=== PATIENT | female | born 1935 | race Caucasian/White ===

== ENCOUNTER 2019-09-15 18:44 | Inpatient (IN) | payer OTHER ==
[2019-09-15] MEDS ORDERED: NA CHLORIDE 0.9% 1,000 ML ONE (19:46)
[2019-09-15] MEDS ORDERED: FENTANYL CITR 100 MCG/2 ML ONE (19:46)
[2019-09-15 19:55] LABS: Basophils % 0.4 % (0-1.3); Hematocrit 34.3 % (36.0-45.0); Lymphocytes % 10.8 % (15.3-44.8); MPV 8.2 fL (7.6-11.3); RBC Red Blood Cell Count 3.66 M/uL (3.86-4.86)
[2019-09-15 19:56] LABS: Protime INR 1.1
[2019-09-15 20:13] LABS: ALT/SGPT 18 U/L (12-78); AST/SGOT 17 U/L (15-37); Albumin 3.1 g/dL (3.4-5.0); Alkaline Phosphatase 64 U/L (45-117); BUN Blood Urea Nitrogen 18 mg/dL (7-18); Bicarbonate 27 mmol/L (21-32); Bilirubin Direct 0.2 mg/dL (0-0.2); Bilirubin Total 0.8 mg/dL (0.2-1.0); Glucose Level 133 mg/dL (74-106); Lipase 72 U/L (73-393); Magnesium 1.8 mg/dL (1.8-2.4); NT PRO-BNP 1460 pg/mL (<450); Potassium 3.4 mmol/L (3.5-5.1); Protein, Total 6.5 g/dL (6.4-8.2); Sodium Level 139 mmol/L (136-145); Troponin (Emerg Dept Use Only) < 0.02 ng/mL (0.0-0.045)
--- NOTE | 2019-09-15 20:55 | RAD REPORT ---
EXAM DESCRIPTION: RAD - Chest Single View - 09/15/2019 8:10 pm CLINICAL HISTORY: Cough, shortness of breath COMPARISON: April 2013 TECHNIQUE: AP portable chest image was obtained 1939 hours . FINDINGS: No peripheral mass or consolidation. Interstitial markings are mildly prominent, increased from comparison. Trachea is midline. Heart and vasculature are normal. No measurable pleural effusio n and no pneumothorax. No acute bony abnormality seen. No acute aortic findings suspected. IMPRESSION: No focal lung parenchymal process P Interstitial pattern is increased over 2013 imaging. This could be progressive fibrosis, edema, infil trate or a combination.
[2019-09-15 21:53] LABS: Urine Blood NEGATIVE (NEG); Urine Glucose NEGATIVE (NEG); Urine Protein NEGATIVE (NEG)
--- NOTE | 2019-09-15 22:27 | EDPHYS ---
Physician Documentation [facility] Name: Anabelle Walters Age: 84 yrs Sex: Female : 1935 Arrival Date: 09/15/2019 Time: 18:54 Bed 3 Private MD: ED Physician Edis Arias HPI: 09/15 21:03 This 84 yrs old Female presents to ER via EMS with complaints of Near jr8 Syncope, Blood Pressure Problem. 21:03 Onset: The symptoms/episode began/occurred acutely, today. Duration: This was a single jr8 episode, that lasted 20 minute(s). Context: the episode(s) was witnessed, by family, occurred at home, occurred while the patient was at rest. Associated injury: The patient did not suffer any apparent associated injury. Associated signs and symptoms: Pertinent positives: diaphoresis, AMS. Current symptoms: Currently, the patient is not experiencing any symptoms, the patient feels back to baseline, no decreased level of consciousness, no confusion, no dysphasia, no headache, no paralysis, no visual changes. The patient has not experienced similar symptoms in the past. The patient has been recently seen by a physician:. Patient underwent laminectomy this past . Stated that she has been doing well since then. This evening had sudden episode of diaphoresis and altered mentation while sitting at dinner table. Was found to have low BP. EMS arrived and started patient on fluids. Now doing much better . Historical: - Allergies: 18:57 No Known Allergies; hb - Immunization history:: Adult Immunizations up to date. - Social history:: Smoking status: Patient/guardian denies using tobacco. - Ebola Screening: : No symptoms or risks identified at this time. ROS: 21:08 Eyes: Negative for injury, pain, redness, and discharge, ENT: Negative for injury, jr8 pain, and discharge, Neck: Negative for injury, pain, and swelling, Cardiovascular: Negative for chest pain, palpitations, and edema, Respiratory: Negative for shortness of breath, cough, wheezing, and pleuritic chest pain, Abdomen/GI: Negative for abdominal pain, nausea, vomiting, diarrhea, and constipation, Back: Negative for injury and pain, MS/Extremity: Negative for injury and deformity, Skin: Negative for injury, rash, and discoloration. 21:08 Neuro: Positive for altered mental status, near syncope. Exam: 21:08 Eyes: Pupils equal round and reactive to light, extra-ocular motions intact. Lids and jr8 lashes normal. Conjunctiva and sclera are non-icteric and not injected. Cornea within normal limits. Periorbital areas with no swelling, redness, or edema. ENT: Nares patent. No nasal discharge, no septal abnormalities noted. Tympanic membranes are normal and external auditory canals are clear. Oropharynx with no redness, swelling, or masses, exudates, or evidence of obstruction, uvula midline. Mucous membranes moist. Neck: Trachea midline, no thyromegaly or masses palpated, and no cervical lymphadenopathy. Supple, full range of motion without nuchal rigidity, or vertebral point tenderness. No Meningismus. Cardiovascular: Regular rate and rhythm with a normal S1 and S2. No gallops, murmurs, or rubs. Normal PMI, no JVD. No pulse deficits. Respiratory: Lungs have equal breath sounds bilaterally, clear to auscultation and percussion. No rales, rhonchi or wheezes noted. No increased work of breathing, no retractions or nasal flaring. Abdomen/GI: Soft, non-tender, with normal bowel sounds. No distension or tympany. No guarding or rebound. No evidence of tenderness throughout. Back: No spinal tenderness. No costovertebral tenderness. Full range of motion. MS/ Extremity: Pulses equal, no cyanosis. Neurovascular intact. Full, normal range of motion. Neuro: Awake and alert, GCS 15, oriented to person, place, time, and situation. Cranial nerves II-XII grossly intact. Motor strength 5/5 in all extremities. Sensory grossly intact. Cerebellar exam normal. Normal gait. 21:08 Skin: Patient has approximately 4 inch incision to midline lower back with multiple atul in place. No active bleeding noted. No erythema noted. Mild amount of bruising present. Vital Signs: 18:57 BP 154 / 84; Pulse 80; Resp 16; Temp 97.8; Pulse Ox 100% on R/A; Pain 2/10; hb 19:55 BP 124 / 60; Pulse 70; Resp 17 S; Pulse Ox 99% on 2 lpm NC; jd3 21:22 BP 133 / 59; Pulse 77; Resp 16 S; Pulse Ox 95% on R/A; jd3 21:56 BP 123 / 59; Pulse 72; Resp 18 S; Pulse Ox 95% on R/A; jd3 22:54 BP 121 / 54; Pulse 67; Resp 17 S; Pulse Ox 96% on R/A; jd3 MDM: 19:11 Patient medically screened. jr8 22:25 Data reviewed: vital signs, nurses notes, lab test result(s), EKG, radiologic studies, jr8 CT scan, plain films. Data interpreted: Pulse oximetry: on room air is 95 %. Interpretation: normal. Counseling: I had a detailed discussion with the patient and/or guardian regarding: the historical points, exam findings, and any diagnostic results supporting the discharge/admit diagnosis, lab results, radiology results, the need for further work-up and treatment in the hospital. Physician consultation: Vijaya Dumont MD was called at 22:26, was contacted at 22:26, regarding admission, to the telemetry unit. consult, patient's condition, and will see patient. 09/15 19:13 Order name: Basic Metabolic Panel [facility] 09/15 19:13 Order name: CBC with Diff [facility] 09/15 19:13 Order name: LFT's [facility] 09/15 19:13 Order name: Magnesium [facility] 09/15 19:13 Order name: NT PRO-BNP [facility] 09/15 19:13 Order name: PT-INR [facility] 09/15 19:13 Order name: Troponin (emerg Dept Use Only) [facility] 09/15 19:13 Order name: Procalcitonin [facility] 09/15 19:13 Order name: Lactate [facility] 09/15 19:13 Order name: Urine Culture [facility] 09/15 19:13 Order name: Lipase [facility] 09/15 19:13 Order name: Blood Culture Adult (2) [facility] 09/15 19:56 Order name: CBC with Automated Diff; Complete Time: 20:05 [facility]DC 09/15 19:58 Order name: Protime (+INR); Complete Time: 20:05 [facility] 09/15 19:13 Order name: XRAY Chest (1 view) [facility] 09/15 20:13 Order name: Lactate; Complete Time: 20:20 EDMS 09/15 20:13 Order name: Basic Metabolic Panel; Complete Time: 20:20 [facility] 09/15 20:13 Order name: Liver (Hepatic) Function; Complete Time: 20:20 [facility] 09/15 20:13 Order name: Troponin (Emerg Dept Use Only); Complete Time: 20:20 [facility] 09/15 20:13 Order name: NT PRO-BNP; Complete Time: 20:20 [facility] 09/15 20:13 Order name: Magnesium; Complete Time: 20:20 [facility] 09/15 20:13 Order name: Lipase; Complete Time: 20:20 [facility] 09/15 20:21 Order name: CT Chest For PE Angio 8 09/15 20:52 Order name: Procalcitonin; Complete Time: 21:29 [facility] 09/15 21:22 Order name: Urine Dipstick--Ancillary (enter results) ar5 09/15 21:54 Order name: Urine Dipstick-Ancillary; Complete Time: 21:57 [facility] 09/15 22:38 Order name: Basic Metabolic Panel [facility] 09/15 22:38 Order name: Basic Metabolic Panel [facility] 09/15 22:38 Order name: CBC with Automated Diff [facility] 09/15 22:38 Order name: CBC with Automated Diff [facility] 09/15 19:13 Order name: EKG; Complete Time: 19:14 [facility] 09/15 19:13 Order name: Cardiac monitoring; Complete Time: 19:50 [facility] 09/15 19:13 Order name: EKG - Nurse/Tech; Complete Time: 19:50 [facility] 09/15 19:13 Order name: IV Saline Lock; Complete Time: 19:55 [facility] 09/15 19:13 Order name: Labs collected and sent; Complete Time: 19:55 [facility] 09/15 19:13 Order name: O2 Per Protocol; Complete Time: 19:17 [facility] 09/15 19:13 Order name: O2 Sat Monitoring; Complete Time: 19:16 [facility] 09/15 19:13 Order name: Urine Dipstick-Ancillary (obtain specimen); Complete Time: 21:22 [facility] 09/15 20:21 Order name: CT Lumbar Spine Wo Con 8 09/15 21:33 Order name: RAD; Complete Time: 21:57 [facility] 09/15 22:38 Order name: CONS Pharmacy Consult [facility] 09/15 22:38 Order name: [facility] EDDC Administered Medications: 19:54 Drug: NS 0.9% 1000 ml Route: IV; Rate: 1 bolus; Site: left antecubital; jd3 22:03 Follow up: Response: No adverse reaction; IV Status: Completed infusion; IV Intake: jd3 1000ml 19:54 Drug: fentaNYL (PF) 50 mcg Route: IVP; Site: left antecubital; jd3 20:50 Follow up: Response: No adverse reaction; RASS: Alert and Calm (0) jd3 22:50 Drug: Potassium Chloride 20 mEq Route: PO; jd3 23:19 Follow up: Response: No adverse reaction jd3 Disposition: 09/16 06:16 Co-signature as Attending Physician, Edis Arias MD I agree with the assessment and kdr plan of care. Disposition: 09/15/19 22:26 Hospitalization ordered by Vijaya Dumont for Observation. Preliminary diagnosis is Hypotension. - Bed requested for Telemetry/MedSurg (observation). - Status is Observation. jd3 - Condition is Stable. - Problem is new. - Symptoms are resolved. UTI on Admission? No Signatures: Dispatcher [employer] EDMS Charito Hurtado RN Raffi Jara MD MD cha Rittger, Kevin, MD MD kdr Roszak, Josh, PA PA jr8 Mary Pelletier RN RN David Savage RN RN jd3 Corrections: (The following items were deleted from the chart) 09/15 22:42 22:26 Hospitalization Ordered by Vijaya Dumont MD for Observation. Preliminary mw diagnosis is Hypotension. Bed requested for Telemetry/MedSurg (observation). Status is Observation. Condition is Stable. Problem is new. Symptoms are resolved. UTI on Admission? No. jr8 23:20 22:42 09/15/2019 22:26 Hospitalization Ordered by Vijaya Dumont MD for Observation. jd3 Preliminary diagnosis is Hypotension. Bed requested for Telemetry/MedSurg (observation). Status is Observation. Condition is Stable. Problem is new. Symptoms are resolved. UTI on Admission? No. mw
--- NOTE | 2019-09-15 22:27 | ER ---
Nurse's Notes [facility] Name: Anabelle Walters Age: 84 yrs Sex: Female : 1935 Arrival Date: 09/15/2019 Time: 18:54 Bed 3 Private MD: Diagnosis: Hypotension Presentation: 09/15 18:55 Presenting complaint: EMS states: Near syncopal episode while sitting in chair at kitchen table. Upon arrival pt was pale, cool, and diaphoretic, unable to palpate BP. During transit to ED BP 101/64, HR 70s, 20g to RIGHT AC. Pt is 2 days s/p laminectomy. Transition of care: patient was not received from another setting of care. Onset of symptoms was September 15, 2019. Risk Assessment: Do you want to hurt yourself or someone else? Patient reports no desire to harm self or others. Initial Sepsis Screen: Does the patient meet any 2 criteria? No. Patient's initial sepsis screen is negative. Does the patient have a suspected source of infection? No. Patient's initial sepsis screen is negative. Care prior to arrival:. 18:55 Method Of Arrival: EMS: [facility] 18:55 Acuity: PAMELA 2 hb Triage Assessment: 18:58 General: Appears in no apparent distress. Behavior is calm, cooperative. Pain: Pain hb currently is 2 out of 10 on a pain scale. EENT: No signs and/or symptoms were reported regarding the EENT system. Neuro: Level of Consciousness is awake, alert, obeys commands, Oriented to person, place, time, situation. Cardiovascular: Capillary refill < 3 seconds Patient's skin is warm and dry. Respiratory: Airway is patent Respiratory effort is even, unlabored, Respiratory pattern is regular, symmetrical, Breath sounds are clear bilaterally. GI: No signs and/or symptoms were reported involving the gastrointestinal system. : No signs and/or symptoms were reported regarding the genitourinary system. Derm: Skin is pink, warm \T\ dry. Musculoskeletal: No signs and/or symptoms reported regarding the musculoskeletal system. Historical: - Allergies: 18:57 No Known Allergies; hb - Immunization history:: Adult Immunizations up to date. - Social history:: Smoking status: Patient/guardian denies using tobacco. - Ebola Screening: : No symptoms or risks identified at this time. Screenin:57 Abuse screen: Denies threats or abuse. Denies injuries from another. Nutritional hb screening: No deficits noted. Tuberculosis screening: No symptoms or risk factors identified. Fall Risk IV access (20 points). Ambulatory Aid- Crutches/Cane/Walker (15 pts). Gait- Weak (10 pts.). Mental Status- Oriented to own ability (0 pts). Total Romano Fall Scale indicates High Risk Score (45 or more points). Fall prevention measures have been instituted. Side Rails Up X 2 Frequent Obs/Assessments Occuring Family Present and informed to notify staff if the need to leave the bedside As available patient and family educated on Fall Prevention Program and Strategies. Assessment: 19:15 General: Appears in no apparent distress. uncomfortable, Behavior is calm, cooperative, jd3 appropriate for age. Pain: Complains of pain in back Quality of pain is described as aching. Neuro: Level of Consciousness is awake, alert, obeys commands, Oriented to person, place, time, situation, Reports a syncopal episode. Cardiovascular: Denies chest pain, Capillary refill < 3 seconds Patient's skin is warm and dry. Rhythm is regular. Respiratory: Airway is patent Respiratory effort is even, unlabored, Respiratory pattern is regular, symmetrical, Denies cough, shortness of breath. GI: No signs and/or symptoms were reported involving the gastrointestinal system. Abdomen is round non-distended, Patient currently denies diarrhea, nausea, vomiting. : No signs and/or symptoms were reported regarding the genitourinary system. EENT: No signs and/or symptoms were reported regarding the EENT system. Derm: Skin is intact, Skin is dry, Skin is normal, Skin temperature is warm. Musculoskeletal: Circulation, motion, and sensation intact. Range of motion: intact in all extremities. 20:05 Reassessment: Patient appears in no apparent distress at this time. No changes from jd3 previously documented assessment. Patient and/or family updated on plan of care and expected duration. Pain level reassessed. Patient is alert, oriented x 3, equal unlabored respirations, skin warm/dry/pink. 21:21 Reassessment: Patient appears in no apparent distress at this time. Patient and/or jd3 family updated on plan of care and expected duration. Pain level reassessed. Patient is alert, oriented x 3, equal unlabored respirations, skin warm/dry/pink. assisted to bedside toilet after returning from CT. urine sample sent to lab. 21:54 Reassessment: Patient appears in no apparent distress at this time. Patient and/or jd3 family updated on plan of care and expected duration. Pain level reassessed. Patient is alert, oriented x 3, equal unlabored respirations, skin warm/dry/pink. pt resting in bed talking with family at bedside. bed rails up X 2. call wagoner in reach. IV is sialine locked with no redness or swelling, site is clean and dry, dressing intact. awaiting results and disposition from provider. 22:53 Reassessment: Patient appears in no apparent distress at this time. Patient and/or jd3 family updated on plan of care and expected duration. Pain level reassessed. Patient is alert, oriented x 3, equal unlabored respirations, skin warm/dry/pink. awaiting admission orders. 23:20 Reassessment: Patient appears in no apparent distress at this time. Patient and/or jd3 family updated on plan of care and expected duration. Pain level reassessed. Patient is alert, oriented x 3, equal unlabored respirations, skin warm/dry/pink. pt reported understanding of need for admission. Vital Signs: 18:57 BP 154 / 84; Pulse 80; Resp 16; Temp 97.8; Pulse Ox 100% on R/A; Pain 2/10; hb 19:55 BP 124 / 60; Pulse 70; Resp 17 S; Pulse Ox 99% on 2 lpm NC; jd3 21:22 BP 133 / 59; Pulse 77; Resp 16 S; Pulse Ox 95% on R/A; jd3 21:56 BP 123 / 59; Pulse 72; Resp 18 S; Pulse Ox 95% on R/A; jd3 22:54 BP 121 / 54; Pulse 67; Resp 17 S; Pulse Ox 96% on R/A; jd3 ED Course: 18:54 Patient arrived in ED. hb 18:56 Triage completed. hb 18:56 Arm band placed on. hb 19:11 Randy Moyer PA is PHCP. jr8 19:11 Raffi Childers MD is Attending Physician. jr8 19:16 David Savage RN is Primary Nurse. jd3 19:50 EKG done, by ED staff, reviewed by Randy AUGUST. rr5 19:51 cardiac monitor on. Pulse ox on. NIBP on. rr5 19:55 Patient has correct armband on for positive identification. Bed in low position. Call jd3 light in reach. Side rails up X2. Adult w/ patient. 20:04 Attending Physician role handed off by Raffi Childers MD kdr 20:04 Edis Arias MD is Attending Physician. kdr 21:49 CT Chest For PE Angio In Process Unspecified. EDMS 21:49 CT Lumbar Spine Wo Con In Process Unspecified. EDMS 22:26 Vijaya Dumont MD is Hospitalizing Provider. jr8 23:19 No provider procedures requiring assistance completed. Patient admitted, IV remains in jd3 place. Administered Medications: 19:54 Drug: NS 0.9% 1000 ml Route: IV; Rate: 1 bolus; Site: left antecubital; jd3 22:03 Follow up: Response: No adverse reaction; IV Status: Completed infusion; IV Intake: jd3 1000ml 19:54 Drug: fentaNYL (PF) 50 mcg Route: IVP; Site: left antecubital; jd3 20:50 Follow up: Response: No adverse reaction; RASS: Alert and Calm (0) jd3 22:50 Drug: Potassium Chloride 20 mEq Route: PO; jd3 23:19 Follow up: Response: No adverse reaction jd3 Intake: 22:03 IV: 1000ml; Total: 1000ml. jd3 Outcome: 22:26 Decision to Hospitalize by Provider. jr8 23:19 Admitted to Med/surg accompanied by tech, via stretcher, room 431, with chart, Report jd3 called to Sandy SIMON 23:19 Condition: stable 23:19 Instructed on the need for admit, Demonstrated understanding of instructions. 23:20 Patient left the ED. jd3 Signatures: Dispatcher [employer] EDPA Edis Arias MD MD kdr Roszak, Josh, PA PA jr8 Mary Pelletier, David Guillen RN, RN RN jd3 Jaylan Torres, AURORA RN rr5 Corrections: (The following items were deleted from the chart) 19:56 19:55 Patient has correct armband on for positive identification. Bed in low position. jd3 Call light in reach. Side rails up X 1. Adult w/ patient. jd3 19:56 18:57 Fall Risk Total Romano Fall Scale indicates High Risk Score (45 or more points). jd3 Fall prevention measures have been instituted. Side Rails Up X 2 Frequent Obs/Assessments Occuring Family Present and informed to notify staff if the need to leave the bedside As available patient and family educated on Fall Prevention Program and Strategies. hb
[2019-09-15] MEDS ORDERED: POTASSIUM CL SA 10 MEQ TAB PO ONE (22:31)
[2019-09-15] MEDS ORDERED: MORPHINE 2 MG/ML SYR IV PRN (22:35)
[2019-09-15] MEDS ORDERED: ONDANSETRON 4 MG/2 ML VIAL IV PRN (22:35)
[2019-09-15] MEDS ORDERED: ACETAMINOPHEN 500 MG TAB PO PRN (22:35)
[2019-09-15 23:46] VITALS: BMI 36.1
[2019-09-16] MEDS: NA CHLORIDE 0.9% 1,000 ML IV SCH ×2 (00:02→13:13)
[2019-09-16] MEDS ORDERED: METOPROLOL TARTRATE 5 MG/5 ML INJ IV STA ×5 (05:02→08:34)
[2019-09-16 06:16] LABS: Absolute Lymphocytes (CBC) 1.7 K/uL (0.7-4.9); Basophils % 0.7 % (0-1.3); Hematocrit 34.5 % (36.0-45.0); Lymphocytes % 18.4 % (15.3-44.8); MPV 8.6 fL (7.6-11.3); RBC Red Blood Cell Count 3.72 M/uL (3.86-4.86)
[2019-09-16 06:20] LABS: BUN Blood Urea Nitrogen 12 mg/dL (7-18); Bicarbonate 29 mmol/L (21-32); Glucose Level 102 mg/dL (74-106); Potassium 3.8 mmol/L (3.5-5.1); Sodium Level 141 mmol/L (136-145)
--- NOTE | 2019-09-16 08:07 | P.HP ---
Certification for Inpatient Patient admitted to: Observation With expected LOS: <2 Midnights Patient will require the following post-hospital care: None Practitioner: I am a practitioner with admitting privileges, knowledge of patient current condition, hospital course, and medical plan of care. Services: Services provided to patient in accordance with Admission requirements found in Title 42 Section 412.3 of the Code of Federal Regulations Patient History Date of Service: 09/15/19 Reason for admission: Syncope and diaphoresis History of Present Illness: Patient is an 84-year-old female who came to the hospital after having a syncopal episode while she was in the kitchen eating. The episode lasted for roughly 15-20 min. Family was with her when this occurred. Patient recently had a laminectomy on . She had been doing well up until this episode. She has been taking her home medications up until yesterday morning. She has only had 1 dose over home medications since her surgery. She was also found to be diaphoretic and patient was confused for a little while afterwards. Patient was initially felt to have hypotension and decision was made to admit her to the hospital for observation after emergency room evaluation. Allergies No Known Allergies Allergy (Verified 09/15/19 23:38) Home Medications: Levothyroxine [Synthroid*] 100 mcg PO [id number] 04/06/13 hydroCHLOROthiazide [Hydrochlorothiazide] 25 mg PO DAILY 08/06/17 Amlodipine Besylate/Benazepril [Lotrel 10-40 mg Capsule] 1 each PO DAILY Carvedilol 12.5 mg PO BID 09/16/19 Docusate [Colace Cap*] 1 cap PO DAILY 09/16/19 Estrogens,Conj Cream [Premarin 0.625MG/Gm*] 1 karyn TOP SEECOM 09/16/19 Gabapentin 300 mg PO SEECOM 09/16/19 Lactobacillus Combo No.13 [Probiotic Pearls Complete] 1 cap PO DAILY 09/16/19 Lutein 20 mg PO DAILY 09/16/19 Nitrofurantoin Macrocrystal [Macrodantin] 50 mg PO DAILY 09/16/19 - Past Medical/Surgical History Has patient received pneumonia vaccine in the past: Yes Diabetic: No -: HTN -: Hysterectomy -: hypothyroid -: Skin cancer -: Blood clots -: itis -: spinal stenosis -: cataract sx -: franky knee SX -: ilectomy -: hysterectomy -: laminectomy - Family History Father Medical History: Hypertension, Diabetes Mother Medical History: Cancer Notes: Colon Cancer Brother Medical History: Cancer - Social History Smoking Status: Never smoker Alcohol use: No CD- Drugs: No Caffeine use: No Place of Residence: Home Review of Systems 10-point ROS is otherwise unremarkable Physical Examination - Vital Signs Temperature: 98.3 F Blood Pressure: 114/74 Pulse: 109 Respirations: 16 Pulse Ox (%): 93 - Physical Exam General: Alert, In no apparent distress, Oriented x3 HEENT: Atraumatic, PERRLA, Mucous membr. moist/pink, EOMI, Sclerae nonicteric Neck: Supple, 2+ carotid pulse no bruit, No LAD, Without JVD or thyroid abnormality Respiratory: Clear to auscultation bilaterally, Normal air movement Cardiovascular: Irregular heart rate/rhythm, Systolic murmur Gastrointestinal: Normal bowel sounds, Soft and benign, Non-distended, No tenderness Musculoskeletal: No clubbing, No swelling, No tenderness Integumentary: Other ([place] in the lower back) Neurological: Normal gait, Normal speech, Normal strength at 5/5 x4 extr, Normal tone, Sensation intact, Cranial nerves 3-12 intact, Normal affect Lymphatics: No axilla or inguinal lymphadenopathy - Studies Laboratory Data (last 24 hrs) 09/15/19 19:39: PT 12.9 H, INR 1.10 09/15/19 19:39: WBC 9.5, Hgb 11.8 L, Hct 34.3 L, Plt Count 196 09/15/19 19:39: Sodium 139, Potassium 3.4 L, BUN 18, Creatinine 0.76, Glucose 133 H, Magnesium 1.8, Total Bilirubin 0.8, AST 17, ALT 18, Alkaline Phosphatase 64, Lipase 72 L Assessment & Plan - Problems (Diagnosis) (1) Status post laminectomy Current Visit: Yes Status: Acute (2) Atrial fibrillation with rapid ventricular response Current Visit: Yes Status: Acute (3) Syncope and collapse Current Visit: Yes Status: Acute (4) HTN (hypertension) Onset Date: 08/08/17 Current Visit: No Status: Acute Qualifiers: (5) Hypothyroidism Onset Date: 08/08/17 Current Visit: No Status: Acute Qualifiers: - Plan Plan: 1. Medication for rate control along with echocardiogram; monitor on telemetry 2. Cardiology consultation 3. Discuss with Cardiology regarding anti coagulation 72hrs after laminectomy surgery 4. Resume BP medications 5. Continue with thyroid medication 6. GI and DVT prophylaxis Discharge Plan: Home Plan to discharge in: 48 Hours - Advance Directives Does patient have a Living Will: Yes Does patient have a Durable POA for Healthcare: Yes - Code Status/Comfort Care Code Status Assessed: Yes Code Status: Full Code Critical Care: No Time Spent Managing PTS Care (In Minutes): 45
--- NOTE | 2019-09-16 12:44 | EKG ---
Test Date: 2019-09-16 Test Time: 05:01:27 [employer] Laboratory Assistant: RT Gaines MEASUREMENT RESULTS: Intervals: Rate: 115 [place]: QRSD: 88 QT: 282 QTc: 390 [place]: P: NC: QRS: 1 T: 219 INTERPRETIVE STATEMENTS: Atrial fibrillation with rapid ventricular response ST & T wave abnormality, consider inferior ischemia or digitalis effect ST & T wave abnormality, consider anterolateral ischemia or digitalis effect Abnormal ECG Compared to ECG 09/16/2019 04:58:28 Possible ischemia now present T-wave abnormality no longer present ST (T wave) deviation still present Electronically Signed On 09-16-19 12:43:28 PRODUCTION SUPERINTENDENT by Derek Jenkins
--- NOTE | 2019-09-16 12:44 | EKG ---
Test Date: 2019-09-15 Test Time: 19:47:12 Dumper: RR MEASUREMENT RESULTS: Intervals: Rate: 74 NE: 190 QRSD: 86 QT: 374 QTc: 415 [place]: P: 86 NE: 190 QRS: 21 T: 70 INTERPRETIVE STATEMENTS: Sinus rhythm with occasional premature ventricular complexes Nonspecific ST and T wave abnormality Abnormal ECG Compared to ECG 08/06/2017 11:52:21 Ventricular premature complex(es) now present Left ventricular hypertrophy no longer present ST (T wave) deviation still present Electronically Signed On 09-16-19 12:43:39 TREASURY SPECIALIST by Derek Jenkins
--- NOTE | 2019-09-16 12:44 | EKG ---
Test Date: 2019-09-16 Test Time: 04:58:28 Distiller: RT Gaines MEASUREMENT RESULTS: Intervals: Rate: 100 VT: QRSD: 90 QT: 280 QTc: 361 [place]: P: VT: QRS: -1 T: 214 INTERPRETIVE STATEMENTS: Atrial fibrillation ST depression, consider subendocardial injury or digitalis effect Nonspecific T wave abnormality, probably digitalis effect Abnormal ECG Compared to ECG 09/15/2019 19:47:12 T-wave abnormality now present Sinus rhythm no longer present Ventricular premature complex(es) no longer present ST (T wave) deviation still present Electronically Signed On 09-16-19 12:43:30 MEDICAL OFFICE WORKER by Derek Jenkins
[2019-09-16] MEDS ORDERED: SOTALOL HCL 80 MG TAB PO ONE (13:00)
[2019-09-16] MEDS: APIXABAN 2.5 MG TABLET PO SCH ×2 (13:13→21:15)
--- NOTE | 2019-09-16 15:03 | P.PN ---
Subjective Date of Service: 09/16/19 Chief Complaint: Syncope and diaphoresis Patient has no complain today. She stated she experiences no pain as long as she does not move. Noted positive orthostatic blood pressure. She is also in atrial fib. Physical Examination - Vital Signs Temperature: 97.2 F Blood Pressure: 143/71 Pulse: 104 Respirations: 18 Pulse Ox (%): 95 - Physical Exam General: Alert, In no apparent distress, Oriented x3 HEENT: Atraumatic, PERRLA, Mucous membr. moist/pink, Sclerae nonicteric Neck: Supple, JVD not distended Respiratory: Clear to auscultation bilaterally, Normal air movement Cardiovascular: No edema, Normal pulses, No murmurs, Irregular heart rate/rhythm Capillary refill: <2 Seconds Gastrointestinal: Normal bowel sounds, Soft and benign, Non-distended, No tenderness Musculoskeletal: No swelling Integumentary: No rashes Neurological: Normal speech, Normal strength at 5/5 x4 extr - Studies Laboratory Data (last 24 hrs) 09/15/19 19:39: PT 12.9 H, INR 1.10 09/15/19 19:39: WBC 9.5, Hgb 11.8 L, Hct 34.3 L, Plt Count 196 09/15/19 19:39: Sodium 139, Potassium 3.4 L, BUN 18, Creatinine 0.76, Glucose 133 H, Magnesium 1.8, Total Bilirubin 0.8, AST 17, ALT 18, Alkaline Phosphatase 64, Lipase 72 L Assessment And Plan - Current Problems (Diagnosis) (1) Atrial fibrillation with rapid ventricular response Current Visit: Yes Status: Acute (2) Status post laminectomy Current Visit: Yes Status: Acute (3) Near syncope Current Visit: Yes Status: Active (4) HTN (hypertension) Onset Date: 08/08/17 Current Visit: No Status: Chronic Qualifiers: (5) Hypothyroidism Onset Date: 08/08/17 Current Visit: No Status: Chronic Qualifiers: - Plan Patient seen by Dr. Jenkins. His input is appreciated. Antihypertensives discontinued. Patient placed on sotalol and Eliquis for AFib. Echocardiogram ordered and is pending. Check TSH and free T4 Continue to trend troponin. Pain management as needed Bedrest today Orthostatic precautions Fall precautions. Continue on gabapentin and dexamethasone for back pain.
[2019-09-16] MEDS: GABAPENTIN 300 MG CAP PO SCH ×2 (17:10→21:15)
[2019-09-16] MEDS: SOTALOL HCL 80 MG TAB PO SCH (18:21)
[2019-09-16] MEDS: LACTOBACILLUS/ACIDOPHILUS TAB PO SCH (21:15)
--- NOTE | 2019-09-16 23:03 | CON ---
Date of Consultation: 09/16/2019 Reason For Consultation: Syncope. History Of Present Illness: Ms. Walters is an 84-year-old white woman. She is very well known to me fr om previous office visits and admission. She has a history of hypertension and hypothyroidism. She basically had an episode while she was eating when she had right facial numbness and droopy face and droopiness in her lips as well and then she lost consciousness. Has not felt well that day, but no s pecific complaint of chest pain or nausea or vomiting or diaphoresis. She denied any PND, orthopnea, pedal edema. Denied any palpitations. She denied any fever or chills or cough. When she came into the hospital, she was noted to be in atrial fibrillation with a rapid ventricular response, was give n metoprolol IV. Past Medical History: As stated above. Allergies: NONE. Review of Systems: Negative. Social History: Negative. Family History: Noncontributory. Medications At Home: Include Lotrel 10/40 once a day, hydrochlorothiazide, Synthroid, Neurontin, and Coreg 12.5 mg b.i.d. Physical Examination: General: She was asymptomatic when I saw her. Vital Signs: No acute distress, but still in atrial fibrillation at a rate of about 110. HEENT: Negative. Neck: Supple. No bruit. Chest: Clear. Cardiac: Revealed atrial fibrillation. Abdomen: Benign. Extremities: Revealed no clubbing, cyanosis, or edema. Neurologic: She was nonfocal. Skin: Dry and intact. Pulses were present bilaterally distally. Diagnostic Data: Pretty normal except for the atrial fibrillation. Chest x-ray shows pulmonary fibr osis. Impression: 1.I think Mrs. Walters suffered a transient ischemic attack because of atrial fibrillation. 2.Hypertension. 3.Hypothyroidism. 4.Pulmonary fibrosis. Plan: I believe we need to stop her hydrochlorothiazide. We will need to stop her Coreg. We need t o put her on sotalol and Eliquis. Get an echocardiogram in the morning. Ambulate. We will see what she does with the sotalol prior to making final decisions. MICHELLE/AB Voice ID: [id number] Report ID: [id number]
[2019-09-17] MEDS: NA CHLORIDE 0.9% 1,000 ML IV SCH (02:55)
[2019-09-17] MEDS: SOTALOL HCL 80 MG TAB PO SCH ×2 (05:56→17:26)
[2019-09-17] MEDS: LEVOTHYROXINE SOD 0.1 MG TAB PO SCH (05:56)
[2019-09-17 05:57] LABS: Absolute Lymphocytes (CBC) 1.5 K/uL (0.7-4.9); Basophils % 0.6 % (0-1.3); Hematocrit 34.1 % (36.0-45.0); Lymphocytes % 19.1 % (15.3-44.8); MPV 8.2 fL (7.6-11.3); RBC Red Blood Cell Count 3.64 M/uL (3.86-4.86)
[2019-09-17 06:19] LABS: BUN Blood Urea Nitrogen 12 mg/dL (7-18); Bicarbonate 29 mmol/L (21-32); Glucose Level 101 mg/dL (74-106); Potassium 3.7 mmol/L (3.5-5.1); Sodium Level 142 mmol/L (136-145); Thyroid Stimulating Hormone 0.188 uIU/mL (0.360-3.740)
[2019-09-17] MEDS: LUTEIN 20 MG PO SCH (08:07)
[2019-09-17] MEDS: DEXAMETHASONE 0.75 MG PO SCH (08:07)
[2019-09-17] MEDS: LACTOBACILLUS/ACIDOPHILUS TAB PO SCH (08:10)
[2019-09-17] MEDS: DOCUSATE NA 100 MG CAP PO SCH (08:10)
[2019-09-17] MEDS: APIXABAN 2.5 MG TABLET PO SCH (08:10)
--- NOTE | 2019-09-17 10:58 | EKG ---
Test Date: 2019-09-17 Test Time: 09:11:57 Foreclosure Field Inspector: VERITO MEASUREMENT RESULTS: Intervals: Rate: 92 [place]: QRSD: 88 QT: 344 QTc: 425 [place]: P: [place]: QRS: 32 T: 1 INTERPRETIVE STATEMENTS: Atrial fibrillation Nonspecific T wave abnormality, probably digitalis effect Abnormal ECG Compared to ECG 09/16/2019 05:01:27 T-wave abnormality now present ST (T wave) deviation no longer present Possible ischemia no longer present Electronically Signed On 09-17-19 10:57:21 PUMP TENDER by Nimesh Quesada
--- NOTE | 2019-09-17 11:50 | ECHO ---
HEIGHT: 5 ft 6 in WEIGHT: 223 lb 11.2 oz DATE OF STUDY: 09/17/[address]: Derke Jenkins MD 2-DIMENSIONAL: YES M.MODE: YES DOPPLER: YES COLOR FLOW: YES TDS: NO PORTABLE: NO DEFINITY: NO BUBBLE STUDY: NO DIAGNOSIS: ATRIAL FIBRILLATION CARDIAC HISTORY: CATHERIZATION: NO SURGERY: NO PROSTHETIC VALVE: NO PACEMAKER: NO MEASUREMENTS (cm) DIASTOLIC (NORMALS) SYSTOLIC (NORMALS) IVSd 1.1 (0.6-1.2) LA Diam 3.6 (1.9-4.0) LVEF 55% LVIDd 5.1 (3.5-5.7) LVIDs 3.6 (2.0-3.5) %FS 29% LVPWd 1.1 (0.6-1.2) Ao Diam 2.6 (2.0-3.7) 2 DIMENSIONAL ASSESSMENT: RIGHT ATRIUM: NORMAL LEFT ATRIUM: NORMAL RIGHT VENTRICLE: NORMAL LEFT VENTRICLE: NORMAL TRICUSPID VALVE: NORMAL MITRAL VALVE: NORMAL PULMONIC VALVE: NORMAL AORTIC VALVE: NORMAL PERICARDIAL EFFUSION: NONE AORTIC ROOT: NORMAL LEFT VENTRICULAR WALL MOTION: NORMAL DOPPLER/COLOR FLOW: MILD TRICUSPID REGURGITATION. ESTIMATED RIGHT VENTRICULAR SYSTOLIC PRESSURE 40 mmHg. MILD PULMONARY HYPERTENSION. COMMENTS: NORMAL 2D ECHOCARDIOGRAM. MILD TRICUSPID REGURGITATION. MILD PULMONARY HYPERTENSION. ATRIAL FIBRILLATION. HEART RATE 90-100 BEATS PER MINUTE. TECHNOLOGIST: Padmini RIVERS
--- NOTE | 2019-09-17 14:02 | RAD REPORT ---
EXAM DESCRIPTION: CT - Spine Lumbar Wo Con - 09/15/2019 9:19 pm CLINICAL HISTORY: 84 years Female Pain. Recent lamenectomy COMPARISON: None TECHNIQUE: Images were obtained in axial, sagittal, and coronal planes. This exam was performed according to our departmental dose-optimization program which includes use of Automated Exposure Control, adjustment of the mA and/or kV according to patient size and/or use of i terative reconstruction technique. FINDINGS: There is history of recent laminectomy involving the lumbar spine. There has been resectio n of the lamina and posterior elements of the L4 vertebral body. Air and ill-defined fluid is seen in the region of the posterior soft tissues at this level. Small air collections are identified within the posterior spinal canal. Height of the vertebral bodies is intact. Satisfactory alignment articular facets. Intervertebral disc space narrowing L2-3 and L3-4 levels. Vacuum disc phenomenon also seen at these l evels. 3 mm anterior subluxation L4 with relationship to L5. T11-12 intervertebral disc is within normal limits. Neural foramen are patent bilaterally at this lev el. T12-L1 intervertebral disc is within normal limits. Neural foramen are patent bilaterally at this lev el. L1-2 intervertebral disc is within normal limits. Neural foramen are patent bilaterally at this level . Diffuse bulging L2-3 intervertebral disc. Facet joint hypertrophy bilaterally. Moderate to marked spi nal stenosis as well as neural foraminal narrowing bilaterally. Diffuse bulging L3-4 osteophyte disc complex. Facet joint hypertrophy bilaterally at this level with associated effacement of thecal sac and marked neural foraminal narrowing bilaterally. Postsurgical c hanges at this level with no significant bony narrowing of spinal canal following surgery Diffuse bulging unroofed L4-5 intervertebral disc with facet joint hypertrophy bilaterally and no sig nificant narrowing of spinal canal. Diffuse bulging L5-S1 intervertebral disc. Facet joint hypertrophy bilaterally at this level. Associa brian mild narrowing of spinal canal and neural foramen bilaterally. No postoperative meningocele. Minimal postoperative blood products posterior spinal soft tissues. IMPRESSION: Patient is 48 hours status post laminectomy L4 level. Ill-defined fluid and air collecti ons are seen within the posterior spinal soft tissues with small air collection within spinal canal l ikely epidural in nature. The findings are likely postsurgical in nature. Clinical correlation and fo llow-up imaging would be suggested to entirely exclude phlegmon with developing abscess. Additional multilevel disc bulging and spondylitic change. These findings are most pronounced at the L3-4 level. No significant narrowing of spinal canal at this level following laminectomy. No evidence for postoperative meningocele. Electronically signed by: Krystina Mcclain MD 09/15/2019 9:59 PM ENROLLMENT COUNSELOR Due to temporary technical issues with the PACS/Fluency reporting system, reports are being signed by the in house radiologist as a courtesy to ensure prompt reporting. The interpreting radiologist is f ully responsible for the content of the report.
--- NOTE | 2019-09-17 14:03 | RAD REPORT ---
EXAM DESCRIPTION: CT - Chest For Pe Angio - 09/15/2019 9:19 pm CLINICAL HISTORY: Shortness of breath. COMPARISON: None. TECHNIQUE: CT angiogram of the chest with IV contrast. 3-D MIP images were obtained in coronal and s agittal reconstructions. This exam was performed according to our departmental dose-optimization prog jorge l, which includes automated exposure control, adjustment of the mA and/or kV according to patient s ize and/or use of iterative reconstruction technique. FINDINGS: No filling defects are identified in the pulmonary trunk, main left and right pulmonary ar teries, or the segmental branches. The thyroid gland is normal. No mediastinal or hilar adenopathy. The heart size is normal without per icardial effusion. The thoracic aorta is normal caliber. No consolidation, pleural effusion, or pneum othorax is identified. The visualized upper abdomen demonstrates no acute findings. No acute osseous findings are seen. IMPRESSION: No acute pulmonary embolism. Electronically signed by: Paul Salvador MD 09/15/2019 9:49 PM SUPERVISOR CONDITIONING YARD Due to temporary technical issues with the PACS/Fluency reporting system, reports are being signed by the in house radiologist as a courtesy to ensure prompt reporting. The interpreting radiologist is f ully responsible for the content of the report.
--- NOTE | 2019-09-17 14:59 | RAD REPORT ---
EXAM DESCRIPTION: US - Extrem Venous W Compress Antwon - 09/17/2019 2:46 pm CLINICAL HISTORY: blood clots Bilateral leg edema and swelling. COMPARISON: Chest For Pe Angio dated 09/15/2019 TECHNIQUE: Real-time sonographic interrogation of the left and right lower extremity deep venous sys tems was performed. FINDINGS: Normal compressibility, flow augmentation, phasic flow and spontaneous flow is identified in both the left and right lower extremity deep venous systems. IMPRESSION: No sonographic evidence of left or right lower extremity deep venous thrombosis.
--- NOTE | 2019-09-17 18:22 | PN ---
Date of Progress Note: 09/17/2019 Subjective: Patient states she feels fine. She is not aware of any abnormal rhythm. She feels back to what her baseline as far as discharge from the hospital is concerned, she has been up and above. There is some tenderness still in the calf area; however, the legs she states feels better since she had the procedure. Her EKG continues to show AFib. She has had 2 doses of Betapace now. However, her rhythm has been under 100 for the most part. Depending on the situation with the Betapace, she p ossibly could be discharged in a.m. HR/MODL Voice ID: [id number] Report ID: [id number]
[2019-09-17] MEDS: APIXABAN 5 MG TABLET PO SCH (21:10)
[2019-09-17] MEDS: GABAPENTIN 300 MG CAP PO SCH (21:10)
[2019-09-17 23:11] VITALS: O2SAT 97
[2019-09-18] MEDS: LEVOTHYROXINE SOD 0.1 MG TAB PO SCH (05:11)
[2019-09-18] MEDS: SOTALOL HCL 80 MG TAB PO SCH (05:11)
[2019-09-18] MEDS: DEXAMETHASONE 0.75 MG PO SCH (08:24)
[2019-09-18] MEDS: LUTEIN 20 MG PO SCH (08:24)
[2019-09-18] MEDS: APIXABAN 5 MG TABLET PO SCH (08:27)
[2019-09-18] MEDS: LACTOBACILLUS/ACIDOPHILUS TAB PO SCH (08:27)
[2019-09-18] MEDS: DOCUSATE NA 100 MG CAP PO SCH (08:28)
--- NOTE | 2019-09-18 08:46 | EKG ---
Test Date: 2019-09-18 Test Time: 01:57:33 Deckhand: RT Gaines MEASUREMENT RESULTS: Intervals: Rate: 70 [place]: 172 QRSD: 86 QT: 392 QTc: 423 [place]: P: 68 [place]: 172 QRS: 1 T: 37 INTERPRETIVE STATEMENTS: Sinus rhythm with premature supraventricular complexes ST & T wave abnormality, consider anterior ischemia Abnormal ECG Compared to ECG 09/17/2019 09:11:57 Atrial premature complex(es) now present ST (T wave) deviation now present Possible ischemia now present Atrial fibrillation no longer present T-wave abnormality no longer present Electronically Signed On 09-18-19 08:45:11 PROPAGATOR by Derek Jenkins
[2019-09-18 12:25] VITALS: BP 126/60; TEMP 97
--- NOTE | 2019-09-18 20:28 | PN ---
Date of Progress Note: 09/18/2019 Ms. Walters had come in along with TIA, new onset atrial fibrillation, was placed on Betapace, has recei melo 3 doses of Betapace. She is also on Eliquis. Today, she has a normal rhythm, completely asympto matic. Note, her TSH level was low. Her T4 was slightly elevated. I will leave that up to Dr. Leticia gonzales as far as treatment is concerned, but from my standpoint she can go home on Betapace 80 b.i.d., E liquis 2.5 b.i.d. We will need to stop her carvedilol at home, stop her hydrochlorothiazide. Contin ue the Lotrel. I will see her in the office next week. MICHELLE/AB Voice ID: [id number] Report ID: [id number]
--- NOTE | 2019-09-18 21:08 | PN ---
Date of Progress Note: 09/18/2019 Patient spontaneously reverted to normal sinus rhythm early this morning, therefore decided to keep h er on maintenance dose of Betapace to 80 mg twice a day. Has stopped Coreg and also diuretic for the present time. She did have some PACs on her EKG. She is to see the back surgeon in a couple days. Follow up with an EKG in my office in a week and see the ice crusher, Dr. Jenkins in 2 weeks. HR/MODL Voice ID: [id number] Report ID: [id number]
== END 2019-09-18 12:42 | disposition home or self-care (01) | DRG 69 ==
LOC: ER 18:44 → ERHOLD 22:45 → 4TH 23:03 → OBSVTOIN 09-17 17:32
PROVIDERS: ADMIT Hospitalist; ATTEND Hospitalist
DX: G45.9 Transient cerebral ischemic attack, unspecified (principal); I48.91 Unspecified atrial fibrillation; I10 Essential (primary) hypertension; E03.9 Hypothyroidism, unspecified; J84.10 Pulmonary fibrosis, unspecified; R55 Syncope and collapse
CPT/HCPCS: 36415; 71045; 71275; 72131; 80048; 80076; 81003; 83605; 83690; 83735; 83880; 84145; 84439; 84443; 84484; 85025; 85610; 87040; 87077; 87086; 87088; 87186; 93005; 93306; 93970; 96361; 96374; 97110; 97116; 97161; 97530; 99285; G0378; J3010; J7030; Q9967

== ENCOUNTER 2021-03-08 12:36 | Emergency (ER) | payer OTHER ==
[2021-03-08] MEDS ORDERED: MORPHINE 4 MG/ML SYR ONE ×2 (14:20→17:42)
--- NOTE | 2021-03-08 14:20 | RAD REPORT ---
EXAM DESCRIPTION: RAD - Knee Left 3 View - 03/08/2021 1:46 pm CLINICAL HISTORY: PAIN COMPARISON: No comparisons FINDINGS: Left total knee arthroplasty is noted. Cortical step-off along the lateral aspect of the d istal femoral metaphysis is likely related to fracture. Moderate lipohemarthrosis noted.
[2021-03-08] MEDS ORDERED: ONDANSETRON 4 MG (ODT) TAB ONE (14:21)
--- NOTE | 2021-03-08 16:18 | ER ---
Nurse's Notes [facility] Name: Anabelle Walters Age: 85 yrs Sex: Female : 1935 Arrival Date: 03/08/2021 Time: 12:45 Bed 4 Private MD: Chan Alcaraz Diagnosis: Periprosthetic fracture around internal prosthetic left knee joint Presentation: 03/08 13:10 Chief complaint: Patient states: "my foot got caught and I fell right onto my knee". Pt aa5 c/o pain to left knee. 13:10 Acuity: PAMELA 4 aa5 13:10 Method Of Arrival: Wheelchair aa5 13:10 Coronavirus screen: At this time, the client does not indicate any symptoms associated aa5 with coronavirus-19. Ebola Screen: Patient negative for fever greater than or equal to 101.5 degrees Fahrenheit, and additional compatible Ebola Virus Disease symptoms. Initial Sepsis Screen: Does the patient meet any 2 criteria? No. Patient's initial sepsis screen is negative. Does the patient have a suspected source of infection? No. Patient's initial sepsis screen is negative. Risk Assessment: Do you want to hurt yourself or someone else? Patient reports no desire to harm self or others. Onset of symptoms was March 08, 2021. Historical: - Allergies: 13:28 No Known Allergies; aa5 - Home Meds: 13:28 Eliquis 2.5 mg oral tab 2 times per day [Active]; amlodipine-benazepril 10-40 mg Oral aa5 cap 1 cap once daily [Active]; sotalol 80 mg oral tab 2 times per day [Active]; levothyroxine 100 mcg tab once daily [Active]; lutein oral oral [Active]; Theracran oral [Active]; stool softener OTC [Active]; gabapentin 300 mg oral cap [Active]; Probiotic OTC [Active]; - PMHx: 13:28 Hypertension; Thyroid problem; colitis; aa5 - PSHx: 13:28 Tonsillectomy; blood clot; Hysterectomy; achilles tendon; lumbar laminectomy (L3-L4, aa5 L4-L5); thyroid; tear duct; franky knee replacement; cataracts; - Immunization history:: Adult Immunizations up to date. - Social history:: Patient/guardian denies using alcohol, street drugs, The patient lives with family, Smoking status: Patient denies any tobacco usage or history of. - Family history:: not pertinent. Screenin:55 Abuse screen: Denies threats or abuse. Nutritional screening: No deficits noted. kg Tuberculosis screening: No symptoms or risk factors identified. Fall Risk Fall in past 12 months (25 points). No secondary diagnosis (0 pts). No IV (0 pts). Ambulatory Aid- Crutches/Cane/Walker (15 pts). Gait- Weak (10 pts.). Mental Status- Oriented to own ability (0 pts). Total Romano Fall Scale indicates Low Risk Score (25-44 pts). Fall prevention measures have been instituted. Side Rails Up X 2 Placed close to Nursing Station Frequent Obs/Assesments occuring Family Present and informed to notify staff if they need to leave bedside As available Patient and Family Educated on Fall Prevention Program and strategies. Assessment: 13:53 General: Appears uncomfortable, Behavior is calm, cooperative, appropriate for age, kg quiet. Pain: Complains of pain in lateral aspect of left knee, posterior aspect of left knee, medial aspect of left knee and left knee Pain radiates to left leg. Pain: Pain currently is 8 out of 10 on a pain scale. at worst was 10 out of 10 on a pain scale. level that patient reports is acceptable is 6 out of 10 on a pain scale. Quality of pain is described as aching, Pain began 3 hours ago. Is continuous. Neuro: No deficits noted. Cardiovascular: No deficits noted. Respiratory: No deficits noted. GI: No deficits noted. : No deficits noted. EENT: No deficits noted. Derm: No deficits noted. Musculoskeletal: No deficits noted. Musculoskeletal: No deficits noted. Reports weakness in left leg pain in lateral aspect of left knee, posterior aspect of left knee, medial aspect of left knee and left knee Pain is 8 out of 10 on a pain scale. 19:14 Reassessment: Patient and/or family updated on plan of care and expected duration. Pain ea level reassessed. Patient is alert, oriented x 3, equal unlabored respirations, skin warm/dry/pink. [facility]J EMS at facility for transfer. Pt left ED via stretcher per EMS. Vital Signs: 13:10 BP 176 / 71; Pulse 66; Resp 18 S; Temp 98.6(O); Pulse Ox 100% on R/A; Weight 106.59 kg aa5 (R); Height 5 ft. 6 in. (167.64 cm) (R); 14:30 BP 117 / 62; Pulse 57; Resp 18; Pulse Ox 93% on R/A; kg 15:00 BP 143 / 70; Pulse 57; Resp 17; Pulse Ox 96% on R/A; kg 16:20 BP 141 / 96; Pulse 68; Resp 18; Pulse Ox 96% on R/A; kg 17:20 BP 136 / 68; Pulse 61; Resp 18; Pulse Ox 94% on R/A; kg 18:20 BP 155 / 76; Pulse 61; Resp 18; Pulse Ox 96% on R/A; kg 13:10 Body Mass Index 37.93 (106.59 kg, 167.64 cm) aa5 ED Course: 12:45 Patient arrived in ED. am2 12:46 Chan Alcaraz MD is Private Physician. am2 13:10 Arm band placed on Patient placed in an exam room, on a stretcher. aa5 13:11 Vijaya Gastelum MD is Attending Physician. ma2 13:20 Triage completed. aa5 13:24 Ivonne Russ is Primary Nurse. kg 13:47 Knee Left 3 View XRAY In Process Unspecified. EDMS 15:11 initiated a transfer with Tressa Lagunas from the [facility]. 16:02 administrative approval given by Tressa Lagunas/ patient has been accepted to [facility] 762/ Dr. Jr Hayes has accepted the patient without conference with Dr. Gastelum/ report to be called to [phone]. 16:24 Inserted saline lock: 20 gauge in right antecubital area, using aseptic technique. kg 16:27 Patient has correct armband on for positive identification. Fall risk band placed. kg Placed in gown. Bed in low position. Call light in reach. Side rails up X2. Adult w/ patient. 16:34 Report given to Rosemarie Paulson. kg 19:16 Primary Nurse role handed off by Ivonne Russ mw2 19:16 No provider procedures requiring assistance completed. Patient transferred, IV remains ea in place. Administered Medications: 14:00 Drug: morphine 10 mg Route: IM; Site: right gluteus; kg 15:00 Follow up: Response: No adverse reaction; Pain is decreased kg 14:00 Drug: Zofran (Ondansetron) 4 mg Route: PO; kg 15:00 Follow up: Response: No adverse reaction; Marked relief of symptoms kg 17:28 Drug: morphine 4 mg Route: IVP; Site: right antecubital; kg 17:54 Follow up: Response: No adverse reaction; Pain is decreased kg 17:28 Drug: Zofran (Ondansetron) 4 mg Route: IVP; Site: right antecubital; kg 17:54 Follow up: Response: No adverse reaction; Pain is decreased kg Output: 16:25 Urine: 530ml (Voided); Total: 530ml. kg Outcome: 16:17 ER care complete, transfer ordered by . [facility] 19:16 Transferred by ground EMS Transfer form completed. ea 19:16 Condition: stable 19:16 Instructed on the need for transfer. 19:16 Patient left the ED. ea Signatures: Dispatcher [employer] Estelita Ge, RN RN aa5 Deanna Stiles amAlannah Cabrera RN Vijaya Alexander ea, MD MD ma2 Melissa Guerra 2 Donna Wilder Kristen kg
--- NOTE | 2021-03-08 16:18 | EDPHYS ---
Physician Documentation [facility] Name: Anabelle Walters Age: 85 yrs Sex: Female : 1935 Arrival Date: 03/08/2021 Time: 12:45 Bed 4 Private MD: Chan Alcaraz ED Physician Vijaya Gastelum HPI: 03/08 15:44 This 85 yrs old Female presents to ER via Wheelchair with complaints of Fall ma2 Injury, Leg Pain. 15:44 Details of fall: The patient fell from a height. Onset: The symptoms/episode ma2 began/occurred gradually, 1 day(s) ago. Severity of symptoms: At their worst the symptoms were moderate, in the emergency department the symptoms are unchanged. The patient has not experienced similar symptoms in the past. Historical: - Allergies: 13:28 No Known Allergies; aa5 - Home Meds: 13:28 Eliquis 2.5 mg oral tab 2 times per day [Active]; amlodipine-benazepril 10-40 mg Oral aa5 cap 1 cap once daily [Active]; sotalol 80 mg oral tab 2 times per day [Active]; levothyroxine 100 mcg tab once daily [Active]; lutein oral oral [Active]; Theracran oral [Active]; stool softener OTC [Active]; gabapentin 300 mg oral cap [Active]; Probiotic OTC [Active]; - PMHx: 13:28 Hypertension; Thyroid problem; colitis; aa5 - PSHx: 13:28 Tonsillectomy; blood clot; Hysterectomy; achilles tendon; lumbar laminectomy (L3-L4, aa5 L4-L5); thyroid; tear duct; franky knee replacement; cataracts; - Immunization history:: Adult Immunizations up to date. - Social history:: Patient/guardian denies using alcohol, street drugs, The patient lives with family, Smoking status: Patient denies any tobacco usage or history of. - Family history:: not pertinent. ROS: 15:44 Constitutional: Negative for fever, chills, and weight loss, Cardiovascular: Negative ma2 for chest pain, palpitations, and edema, Respiratory: Negative for shortness of breath, cough, wheezing, and pleuritic chest pain, Abdomen/GI: Negative for abdominal pain, nausea, diarrhea, and constipation, MS/Extremity: Negative for injury and deformity, Neuro: Negative for headache, weakness, numbness, tingling, and seizure, Psych: Negative for depression, anxiety, suicide ideation, homicidal ideation, and hallucinations, Allergy/Immunology: Negative for hives, rash, and allergies. 15:44 All other systems are negative. Exam: 15:44 Constitutional: This is a well developed, well nourished patient who is awake, alert, ma2 and in no acute distress. Head/Face: Normocephalic, atraumatic. Eyes: Pupils equal round and reactive to light, extra-ocular motions intact. Lids and lashes normal. Conjunctiva and sclera are non-icteric and not injected. Cornea within normal limits. Periorbital areas with no swelling, redness, or edema. ENT: Nares patent. No nasal discharge, no septal abnormalities noted. Tympanic membranes are normal and external auditory canals are clear. Oropharynx with no redness, swelling, or masses, exudates, or evidence of obstruction, uvula midline. Mucous membranes moist. Neck: Trachea midline, no thyromegaly or masses palpated, and no cervical lymphadenopathy. Supple, full range of motion without nuchal rigidity, or vertebral point tenderness. No Meningismus. Chest/axilla: Normal chest wall appearance and motion. Nontender with no deformity. No lesions are appreciated. Cardiovascular: Regular rate and rhythm with a normal S1 and S2. No gallops, murmurs, or rubs. Normal PMI, no JVD. No pulse deficits. Respiratory: Lungs have equal breath sounds bilaterally, clear to auscultation and percussion. No rales, rhonchi or wheezes noted. No increased work of breathing, no retractions or nasal flaring. Abdomen/GI: Soft, non-tender, with normal bowel sounds. No distension or tympany. No guarding or rebound. No evidence of tenderness throughout. Back: No spinal tenderness. No costovertebral tenderness. Full range of motion. Skin: Warm, dry with normal turgor. Normal color with no rashes, no lesions, and no evidence of cellulitis. MS/ Extremity: left knee pain and limited rom, Pulses equal, no cyanosis. Neurovascular intact. Full, normal range of motion. Neuro: Awake and alert, GCS 15, oriented to person, place, time, and situation. Cranial nerves II-XII grossly intact. Motor strength 5/5 in all extremities. Sensory grossly intact. Cerebellar exam normal. Normal gait. Vital Signs: 13:10 BP 176 / 71; Pulse 66; Resp 18 S; Temp 98.6(O); Pulse Ox 100% on R/A; Weight 106.59 kg aa5 (R); Height 5 ft. 6 in. (167.64 cm) (R); 14:30 BP 117 / 62; Pulse 57; Resp 18; Pulse Ox 93% on R/A; kg 15:00 BP 143 / 70; Pulse 57; Resp 17; Pulse Ox 96% on R/A; kg 16:20 BP 141 / 96; Pulse 68; Resp 18; Pulse Ox 96% on R/A; kg 17:20 BP 136 / 68; Pulse 61; Resp 18; Pulse Ox 94% on R/A; kg 18:20 BP 155 / 76; Pulse 61; Resp 18; Pulse Ox 96% on R/A; kg 13:10 Body Mass Index 37.93 (106.59 kg, 167.64 cm) aa5 MDM: 13:12 Patient medically screened. [facility] 15:44 Differential diagnosis: contusion, fracture, sprain, strain. [facility] 16:16 Data reviewed: vital signs, nurses notes. Counseling: I had a detailed discussion with [facility] the patient and/or guardian regarding: the historical points, exam findings, and any diagnostic results supporting the discharge/admit diagnosis, the presence of at least one elevated blood pressure reading (>120/80) during this emergency department visit. ED course: . 03/08 13:26 Order name: Knee Left 3 View XRAY; Complete Time: 14:47 [facility] 03/08 15:10 Order name: Knee Immobilizer [facility] Administered Medications: 14:00 Drug: morphine 10 mg Route: IM; Site: right gluteus; kg 15:00 Follow up: Response: No adverse reaction; Pain is decreased kg 14:00 Drug: Zofran (Ondansetron) 4 mg Route: PO; kg 15:00 Follow up: Response: No adverse reaction; Marked relief of symptoms kg 17:28 Drug: morphine 4 mg Route: IVP; Site: right antecubital; kg 17:54 Follow up: Response: No adverse reaction; Pain is decreased kg 17:28 Drug: Zofran (Ondansetron) 4 mg Route: IVP; Site: right antecubital; kg 17:54 Follow up: Response: No adverse reaction; Pain is decreased kg Disposition: 03/08/21 16:17 Transfer ordered to [facility]. Diagnosis is Periprosthetic fracture around internal prosthetic left knee joint. - Reason for transfer: Higher level of care. - Accepting physician is PETER Jefferson. - Condition is Stable. - Problem is new. - Symptoms are unchanged. Signatures: Dispatcher [employer] EDEstelita Diaz, RN RN aa5 Alannah Fernandez RN RN Vijaya Berrios MD MD ma2 Ivonne Russ kg Corrections: (The following items were deleted from the chart) 19:16 16:17 03/08/2021 16:17 Transfer ordered to [facility]. Diagnosis is ea Periprosthetic fracture around internal prosthetic left knee joint. Reason for transfer: Higher level of care. Accepting physician is PETER Jefferson. Condition is Stable. Problem is new. Symptoms are unchanged. ma2
[2021-03-08] MEDS ORDERED: ONDANSETRON 4 MG/2 ML VIAL ONE (17:42)
[2021-03-08 19:41] VITALS: TEMP 98.6
[2021-03-08 19:49] VITALS: BP 155/76; O2SAT 96
== END 2021-03-08 19:16 | disposition short-term general hospital (02) ==
LOC: ER 12:36
DX: M97.12XA Periprosthetic fracture around internal prosthetic left knee joint, initial encounter (principal); S79.192A Other physeal fracture of lower end of left femur, initial encounter for closed fracture; W19.XXXA Unspecified fall, initial encounter; I10 Essential (primary) hypertension; Z96.653 Presence of artificial knee joint, bilateral
CPT/HCPCS: 73562; J2405; 96372; 96374; 96375; 99285